=== PATIENT | male | born 1995 | race Caucasian/White ===

== ENCOUNTER 2021-05-02 18:49 | Emergency (ER) | payer MEDICAID ==
[~2021-05-02] VITALS: Ht 175.3 cm; Wt 68.0 kg
--- NOTE | 2021-05-02 20:00 | NUR ---
BIBRA 8[facility] FROM [facility] FOR C/O L FLANK PAIN. -DYSURIA OR HEMATURIA. PT AFEBRILE BREATHING EVEN AND UNLABORED ALL V/S STABLE.
--- NOTE | 2021-05-02 20:05 | NUR ---
URINE COLLECTED AND SENT TO LAB
[2021-05-02 21:07] LABS: BILIRUBIN,URINE NEGATIVE (NEGATIVE); COLOR,URINE YELLOW (YELLOW); LEUKOCYTE ESTERASE ,URINE NEGATIVE (NEGATIVE); NITRITE, URINE NEGATIVE (NEGATIVE); PH,URINE 7.5 (5.0-8.0); PROTEIN,URINE NEGATIVE (NEGATIVE); UGLUCOSE NEGATIVE (NEGATIVE); UROBILINOGEN,URINE 0.2 EU/dL (0.2)
[2021-05-02 21:17] LABS: RBC,URINE 21-50 /HPF (0-2)
[2021-05-02 21:18] LABS: BACTERIA,URINE 1+ /HPF (None Seen); CALCIUM OXALATE CRYSTALS,UR Few /HPF (None Seen); MUCUS,URINE Few /LPF (None Seen); SQUAMOUS EPITHELIAL CELL,UR 0-2 /HPF (None Seen); WBC,URINE 0-2 /HPF (0-3)
[2021-05-02 21:38] LABS: BASOPHILS # (AUTO) 0.1 K/uL (0.0-0.2); BASOPHILS % (AUTO) 0.6 % (0.0-2.0); EOSINOPHILS % (AUTO) 0.4 % (0.0-6.0); HEMATOCRIT 39 % (39-51); LYMPHOCYTES # (AUTO) 1.6 K/uL (0.8-4.8); LYMPHOCYTES % (AUTO) 16.6 % (20.0-44.0); MEAN CORPUSCULAR HGB CONC 33 g/dl (31.0-36.0); MEAN CORPUSCULAR VOLUME 92 fL (80-96); MONOCYTES # (AUTO) 0.8 K/uL (0.1-1.30); NEUTROPHILS # (AUTO) 7.2 K/uL (1.8-8.9); NEUTROPHILS % (AUTO) 74.4 % (43.0-81.0); PLATELET COUNT (AUTO) 282 K/uL (150-450); RED BLOOD CELL COUNT(AUTO) 4.27 MIL/uL (4.5-6.0); WHITE BLOOD COUNT (AUTO) 9.7 K/uL (4.3-11.0)
[2021-05-02 21:54] LABS: CALCIUM, SERUM 8.5 mg/dL (8.5-10.1); CREATININE 0.9 mg/dL (0.6-1.3); POTASSIUM 4.4 mmol/L (3.5-5.1)
[2021-05-02 22:00] LABS: ALBUMIN 3.9 g/dL (3.4-5.0); BILIRUBIN,DIRECT 0.1 mg/dL (0.0-0.2); BILIRUBIN,TOTAL 0.3 mg/dL (0.2-1.0); TOTAL PROTEIN, SERUM 7.5 g/dL (6.4-8.2)
[2021-05-02] MEDS ORDERED: KETOROLAC TROMETHAMINE INJ 30 MG/ML VIAL IV ONE (22:00)
[2021-05-02] MEDS ORDERED: KETOROLAC TROMETHAMINE INJ 30 MG/ML VIAL ONE (22:35)
--- NOTE | 2021-05-02 22:38 | NUR ---
TORADOL 30MG GIVEN IM PER MD ORDER
[2021-05-02] MEDS ORDERED: HYDR-3972 PO (22:43)
[2021-05-02] MEDS ORDERED: IBUP-1955 PO (22:43)
[2021-05-02] MEDS ORDERED: TAMS-12 PO (22:43)
--- NOTE | 2021-05-02 23:45 | NUR ---
Patient discharged to home in stable condition. Written and verbal after care instructions given. Patient verbalizes understanding of instruction. Pt ambulatory with a steady gait
[2021-05-03 00:15] VITALS: BP 128/60
== END 2021-05-02 23:46 | disposition home or self-care (01) ==
LOC: ER 18:52
DX: N23 Unspecified renal colic (principal); Z98.890 Other specified postprocedural states
CPT/HCPCS: 36415; 76770; 80048; 80076; 81001; 85025; 96372; 99284; J1885